=== PATIENT | female | born 2000 | race Two or more races ===

== ENCOUNTER 2020-05-06 09:55 | Outpatient (CLI) | payer OTHER | END 2020-05-06 10:01 | disposition home or self-care (01) | LOC: LAB 09:55 | PROVIDERS: ATTEND Obstetrics & Gynecology Gynecologic Oncology | DX: Z20.828 Contact with and (suspected) exposure to other viral communicable diseases (principal) ==

== ENCOUNTER 2020-05-13 06:42 | Day surgery (SDC) | payer OTHER ==
[~2020-05-13] VITALS: Ht 167.6 cm; Wt 81.6 kg
== END 2020-05-13 17:40 | disposition home or self-care (01) ==
LOC: CIR.AMB 06:42 → U 06:42 → CIR.AMB 09:15
PROVIDERS: ATTEND Obstetrics & Gynecology Gynecologic Oncology
DX: D27.0 Benign neoplasm of right ovary (principal); Z20.828 Contact with and (suspected) exposure to other viral communicable diseases